=== PATIENT | female | born 1935 | race Caucasian/White ===

== ENCOUNTER 2024-06-10 10:15 | Outpatient (RCR) | payer MEDICARE, BC, SELFPAY | END 2024-10-08 23:59 | disposition home or self-care (01) | PROVIDERS: PCP Family Medicine; Visit Provider Student in an Organized Health Care Education/Training Program | DX: N39.46 Mixed incontinence (principal); Z51.89 Encounter for other specified aftercare | CPT/HCPCS: 97110; 97112; 97162 ==